=== PATIENT | male | born 1930 | race Caucasian/White ===

== ENCOUNTER 2017-11-22 11:19 | Inpatient (IN) | payer OTHER ==
[~2017-11-22] VITALS: Ht 172.7 cm; Wt 73.9 kg
[2017-11-22 13:19] LABS: Basophils # (auto) 0 uL; Eosinophils # (auto) 0.1 uL; Hemoglobin 11.3 g/dL (13.5-17.5); White Blood Cell 7.1 10^3/uL (4.4-10.8)
[2017-11-22 13:20] LABS: Basophils % (auto) 0.4 % (0.0-2.0); Eosinophils % (auto) 1.8 % (0.0-7.0); Lymphocytes # (auto) 1.7 uL; Lymphocytes % (auto) 24.3 % (10.0-50.0); Mean Corpuscular Hemoglobin 35.3 pg (28.0-32.0); Mean Corpuscular Hgb Conc. 34.2 g/dL (32.0-36.0); Mean Corpuscular Volume 103.1 fL (80.0-100.0); Monocytes # (auto) 0.4 uL; Monocytes % (auto) 6.3 % (0.0-12.0); Neutrophils # (auto) 4.8 uL; Neutrophils % (auto) 67.2 % (37.0-80.0); Nucleated Red Blood Cells % 0.1 %; Platelet Count (auto) 151 10^3/uL (140-450); Red Cell Distribution Width 13.1 % (11.8-14.3)
[2017-11-22 13:31] LABS: Potassium 4.1 mmol/L (3.5-5.1)
[2017-11-22 13:35] LABS: Bilirubin, Total 0.2 mg/dL (0.2-1.0); Calcium 8.5 mg/dL (8.5-10.1); Total Protein 6.8 g/dL (6.4-8.2)
[2017-11-22] MEDS ORDERED: SODIUM CHLORIDE 0.9% 1,000 ML IV ONE (16:28)
[2017-11-22 16:56] LABS: Magnesium 2.6 mg/dL (1.6-2.6)
[2017-11-22] MEDS ORDERED: MEMA1TAB2 PO (20:25)
[2017-11-22] MEDS ORDERED: ASPI-231 PO (20:25)
[2017-11-22] MEDS ORDERED: DOCU250C3 PO (20:25)
[2017-11-22] MEDS ORDERED: MIRT15TA3 PO (20:26)
[2017-11-22] MEDS ORDERED: SIMV-13 PO (20:26)
[2017-11-22] MEDS ORDERED: NITR0.4S29 SL (20:26)
[2017-11-22] MEDS ORDERED: LISI-646 PO (20:26)
[2017-11-22] MEDS ORDERED: TERA10CA36 PO (20:26)
[2017-11-22] MEDS ORDERED: DICL1GEL26 TD (20:26)
[2017-11-22] MEDS ORDERED: FINA5TAB4 PO (20:26)
[2017-11-22 21:22] LABS: Urine Bacteria NONE SEEN /hpf (None Seen); Urine Blood Negative /uL (Negative); Urine Mucus FEW (None Seen); Urine Specific Gravity 1.015 (1.001-1.035); Urine WBC <1 /hpf (0 - 3)
[2017-11-22 21:28] LABS: Alcohol, Urine < 3.0 mg/dL (0-5); Amphetamine Screen, Urine NEGATIVE (NEGATIVE); Barbiturate Scree,Urine NEGATIVE (NEGATIVE); Benzodiazephine Screen, Urine NEGATIVE (NEGATIVE); Cannabinoid Screen, Urine POSITIVE (NEGATIVE); Cocaine Screen, Urine NEGATIVE (NEGATIVE); Opiate Scree,Urine NEGATIVE (NEGATIVE); Phencyclidine Screen, Urine NEGATIVE (NEGATIVE)
[2017-11-22] MEDS ORDERED: ACETAMINOPHEN 500 MG TAB PO PRN (22:15)
[2017-11-22] MEDS ORDERED: ONDANSETRON HCL 4 MG/2 ML VIAL IV PRN (22:15)
[2017-11-22 23:32] VITALS: BP 126/68
[2017-11-23 05:05] VITALS: BP 126/67
[2017-11-23 06:13] LABS: Basophils # (auto) 0 uL; Basophils % (auto) 0.5 % (0.0-2.0); Eosinophils # (auto) 0.2 uL; Hemoglobin 11.1 g/dL (13.5-17.5); Mean Corpuscular Volume 103.5 fL (80.0-100.0); Monocytes # (auto) 0.4 uL; Neutrophils # (auto) 2.5 uL; Nucleated Red Blood Cells % 0.1 %
[2017-11-23 06:16] LABS: Eosinophils % (auto) 4.5 % (0.0-7.0); Lymphocytes % (auto) 38.9 % (10.0-50.0); Mean Corpuscular Hgb Conc. 34.8 g/dL (32.0-36.0); Monocytes % (auto) 8.2 % (0.0-12.0); Neutrophils % (auto) 47.9 % (37.0-80.0); Platelet Count (auto) 142 10^3/uL (140-450); Red Blood Cells 3.09 10^6/uL (4.5-5.90); Red Cell Distribution Width 12.8 % (11.8-14.3); White Blood Cell 5.1 10^3/uL (4.4-10.8)
[2017-11-23 06:45] LABS: BUN/Creatinine Ratio 21.7; Calcium 8.3 mg/dL (8.5-10.1); Potassium 4.5 mmol/L (3.5-5.1)
[2017-11-23 09:00] VITALS: BP 109/68
[2017-11-23] MEDS: MEMANTINE HCL 5 MG TAB PO SCH (10:06)
[2017-11-23] MEDS: FINASTERIDE 5 MG TAB PO SCH (10:06)
[2017-11-23] MEDS: LISINOPRIL 20 MG TAB PO SCH (10:07)
[2017-11-23] MEDS: ASPirin-EC 81 mg tab PO SCH (10:07)
[2017-11-23 13:00] VITALS: BP 122/64
[2017-11-23 17:00] VITALS: BP 142/82
[2017-11-23] MEDS ORDERED: TERAZOSIN HCL 5 MG CAP PO SCH (22:00)
[2017-11-23] MEDS ORDERED: MIRTAZAPINE 30 MG TAB PO SCH (22:00)
[2017-11-24] MEDS ORDERED: diphenhdrAMINE HCL 50 MG/1 ML VL IV ONE (06:30)
[2017-11-24 08:36] VITALS: BP 113/58
[2017-11-24] MEDS: MEMANTINE HCL 5 MG TAB PO SCH (10:06)
[2017-11-24] MEDS: LISINOPRIL 20 MG TAB PO SCH (10:06)
[2017-11-24] MEDS: ASPirin-EC 81 mg tab PO SCH (10:06)
[2017-11-24] MEDS: FINASTERIDE 5 MG TAB PO SCH (10:06)
[2017-11-24] MEDS: HYDROcodone-ACET 5/325MG TAB PO PRN ×2 (12:32→19:39)
[2017-11-24 12:37] VITALS: BP 141/73
[2017-11-24 17:00] VITALS: BP 126/72
[2017-11-24] MEDS ORDERED: MIRTAZAPINE 30 MG TAB PO SCH (20:00)
[2017-11-24] MEDS ORDERED: TERAZOSIN HCL 5 MG CAP PO SCH (20:00)
[2017-11-24 22:00] VITALS: BP 120/72
[2017-11-25 05:00] VITALS: BP 119/65
[2017-11-25 08:00] VITALS: BP 90/39
[2017-11-25] MEDS: LISINOPRIL 20 MG TAB PO SCH (10:00)
[2017-11-25] MEDS: MEMANTINE HCL 5 MG TAB PO SCH (10:07)
[2017-11-25] MEDS: FINASTERIDE 5 MG TAB PO SCH (10:08)
[2017-11-25] MEDS: ASPirin-EC 81 mg tab PO SCH (10:08)
[2017-11-25] MEDS: HYDROcodone-ACET 5/325MG TAB PO PRN (10:08)
[2017-11-25 12:00] VITALS: BP 80/44
[2017-11-25 16:00] VITALS: BP 77/32
[2017-11-25 18:25] VITALS: BP 90/39
== END 2017-11-25 19:50 | disposition home or self-care (01) | DRG 308 ==
LOC: ER 11:19 → TELE 11:20 → TELE-WESTW 23:01
PROVIDERS: ADMIT Nurse Practitioner Family; ATTEND Family Medicine
PROC: 4B02XSZ Measurement of Cardiac Pacemaker, External Approach (ICD-10-PCS; principal; 2017-11-24)
DX: T82.110A Breakdown (mechanical) of cardiac electrode, initial encounter (principal); G93.40 Encephalopathy, unspecified; I10 Essential (primary) hypertension; D64.9 Anemia, unspecified; I49.5 Sick sinus syndrome; F03.90 Unspecified dementia, unspecified severity, without behavioral disturbance, psychotic disturbance, mood disturbance, and anxiety; E78.00 Pure hypercholesterolemia, unspecified; E78.5 Hyperlipidemia, unspecified; F17.210 Nicotine dependence, cigarettes, uncomplicated; I95.9 Hypotension, unspecified; N40.0 Benign prostatic hyperplasia without lower urinary tract symptoms; F32.9 Major depressive disorder, single episode, unspecified; S40.012A Contusion of left shoulder, initial encounter; Y71.2 Prosthetic and other implants, materials and accessory cardiovascular devices associated with adverse incidents; I25.10 Atherosclerotic heart disease of native coronary artery without angina pectoris; M75.102 Unspecified rotator cuff tear or rupture of left shoulder, not specified as traumatic; M19.011 Primary osteoarthritis, right shoulder; R63.0 Anorexia; W18.39XA Other fall on same level, initial encounter; Y93.89 Activity, other specified; Y92.098 Other place in other non-institutional residence as the place of occurrence of the external cause; Z79.899 Other long term (current) drug therapy; Z95.0 Presence of cardiac pacemaker; Y99.8 Other external cause status; Z98.61 Coronary angioplasty status; Z68.24 Body mass index [BMI] 24.0-24.9, adult
CPT/HCPCS: 36415; 70450; 71045; 73030; 80048; 80053; 80307; 81001; 83735; 84443; 84484; 85025; 93005; 94761; 96360

== ENCOUNTER 2017-12-22 08:14 | Inpatient (IN) | payer BC, OTHER ==
[~2017-12-22] VITALS: Ht 180.3 cm; Wt 71.4 kg
[~2017-12-22 08:14] MED LIST: ASPI-231 PO; DICL1GEL26 TD; DOCU250C3 PO; FINA5TAB4 PO; LISI-646 PO; MEMA1TAB2 PO; MIRT15TA3 PO; NITR0.4S29 SL; SIMV-13 PO; TERA10CA36 PO
[2017-12-22] MEDS ORDERED: SODIUM CHLORIDE 0.9% 1,000 ML IV ONE (08:32)
[2017-12-22] MEDS ORDERED: HALOPERIDOL LACTATE 5 MG/ML INJ VIAL IM ONE (08:45)
[2017-12-22] MEDS ORDERED: LORazepam 2MG/ML-1ML VIAL IV ONE (08:45)
[2017-12-22] MEDS ORDERED: LORazepam 2MG/ML-1ML VIAL IM ONE (09:00)
[2017-12-22 09:54] LABS: Basophils # (auto) 0 uL; Eosinophils # (auto) 0 uL; Hemoglobin 12.2 g/dL (13.5-17.5); Lymphocytes # (auto) 1.4 uL; Mean Corpuscular Hemoglobin 35.1 pg (28.0-32.0); Mean Corpuscular Hgb Conc. 34.2 g/dL (32.0-36.0); Mean Corpuscular Volume 102.6 fL (80.0-100.0); Monocytes # (auto) 0.4 uL
[2017-12-22 09:56] LABS: Basophils % (auto) 0.6 % (0.0-2.0); Eosinophils % (auto) 0.7 % (0.0-7.0); Hematocrit 35.6 % (41.0-53.0); Lymphocytes % (auto) 23.9 % (10.0-50.0); Monocytes % (auto) 7.4 % (0.0-12.0); Neutrophils % (auto) 67.4 % (37.0-80.0); Nucleated Red Blood Cells % 0.1 %; Platelet Count (auto) 155 10^3/uL (140-450); Red Blood Cells 3.47 10^6/uL (4.5-5.90); Red Cell Distribution Width 13.6 % (11.8-14.3)
[2017-12-22 10:17] LABS: Alanine Aminotransferase 17 U/L (16-61); Albumin 4.4 g/dL (3.4-5.0); Alkaline Phosphatase 65 U/L (45-117); Anion Gap 6 (5-15); Aspartate Aminotransferase 16 U/L (15-37); BUN/Creatinine Ratio 16.4; Bilirubin, Total 0.4 mg/dL (0.2-1.0); Blood Alcohol < 3.0 mg/dL (0-5); Blood Urea Nitrogen 18 mg/dL (7-18); Calcium 8.5 mg/dL (8.5-10.1); Carbon Dioxide 28 mmol/L (21-32); Chloride 109 mmol/L (98-107); GFR African American 82 mL/min; GFR Non-African American 67 mL/min; Glucose 97 mg/dL (74-106); Potassium 3.8 mmol/L (3.5-5.1); Sodium 143 mmol/L (136-145); Total Protein 7.3 g/dL (6.4-8.2)
[2017-12-22 10:51] LABS: Urine Amorphous Crystal FEW /hpf (None Seen); Urine Bacteria FEW /hpf (None Seen); Urine Blood Negative /uL (Negative); Urine Specific Gravity 1.011 (1.001-1.035); Urine WBC <1 /hpf (0 - 3)
[2017-12-22 10:53] LABS: Partial Thromboplastin Time 24.5 sec (23.78-33.04); Prothrombin Time 10.7 sec (9.27-12.13)
[2017-12-22] MEDS: SODIUM CHLORIDE 0.9% 1,000 ML IV SCH ×2 (11:02→22:04)
[2017-12-22 11:13] LABS: Alcohol, Urine < 3.0 mg/dL (0-5); Amphetamine Screen, Urine NEGATIVE (NEGATIVE); Barbiturate Scree,Urine NEGATIVE (NEGATIVE); Benzodiazephine Screen, Urine NEGATIVE (NEGATIVE); Cannabinoid Screen, Urine POSITIVE (NEGATIVE); Cocaine Screen, Urine NEGATIVE (NEGATIVE); Opiate Scree,Urine NEGATIVE (NEGATIVE); Phencyclidine Screen, Urine NEGATIVE (NEGATIVE)
[2017-12-22] MEDS ORDERED: LACTULOSE 20Gm/30ML SOLN PO PRN (11:15)
[2017-12-22] MEDS ORDERED: TEMAZEPAM 15 MG CAP PO PRN (11:15)
[2017-12-22] MEDS ORDERED: DOCUSATE ORAL LIQUID 100 MG/10 ML UD PO PRN (11:15)
[2017-12-22] MEDS ORDERED: LABETALOL HCL 5 MG/ML ML 20ML VIAL IV PRN (11:15)
[2017-12-22] MEDS ORDERED: LORazepam 0.5 MG TAB PO PRN (11:15)
[2017-12-22] MEDS ORDERED: MORPHINE SULF INJ 2 MG/ML SYRINGE 1ML IV PRN ×2 (11:15)
[2017-12-22] MEDS ORDERED: NITROGLYCERIN 0.4 MG SL TAB SL PRN (11:15)
[2017-12-22] MEDS ORDERED: PROMETHAZINE HCL 25 MG/ML 1ML IV PRN (11:15)
[2017-12-22] MEDS ORDERED: PANTOPRAZOLE 40 MG TAB PO ONE (11:45)
[2017-12-22] MEDS ORDERED: ASPirin-EC 81 mg tab PO ONE (11:45)
[2017-12-22] MEDS ORDERED: LISINOPRIL 20 MG TAB PO ONE (12:00)
[2017-12-22] MEDS ORDERED: MEMANTINE HCL 5 MG TAB PO ONE (12:15)
[2017-12-22 15:55] LABS: Folate (Folic Acid) 18.73 ng/mL (5.38-24)
[2017-12-22] MEDS: MIRTAZAPINE 30 MG TAB PO SCH (18:00)
[2017-12-22] MEDS ORDERED: HALOPERIDOL LACTATE 5 MG/ML INJ VIAL ONE (20:38)
[2017-12-22] MEDS: HALOPERIDOL LACTATE 5 MG/ML INJ VIAL IM PRN (20:52)
[2017-12-22] MEDS: ATORVASTATIN 20 MG TAB PO SCH (22:00)
[2017-12-22] MEDS: TERAZOSIN HCL 5 MG CAP PO SCH (22:00)
[2017-12-22] MEDS: FINASTERIDE 5 MG TAB PO SCH (22:00)
[2017-12-22 22:10] VITALS: BP 141/76
[2017-12-22 23:00] VITALS: BP 141/76
[2017-12-23] MEDS ORDERED: DIPH1TAB30 PO (06:18)
[2017-12-23] MEDS ORDERED: BACL10TA PO (06:18)
[2017-12-23] MEDS ORDERED: NAPR375T27 PO (06:20)
[2017-12-23] MEDS ORDERED: NAPR-476 PO (06:20)
[2017-12-23] MEDS ORDERED: MELA3TAB27 PO (06:20)
[2017-12-23 08:00] VITALS: BP 124/79
[2017-12-23 09:00] VITALS: BP 123/69
[2017-12-23] MEDS: PANTOPRAZOLE 40 MG TAB PO SCH (10:07)
[2017-12-23] MEDS: MEMANTINE HCL 5 MG TAB PO SCH (10:07)
[2017-12-23] MEDS: LISINOPRIL 20 MG TAB PO SCH (10:08)
[2017-12-23] MEDS: ASPirin-EC 81 mg tab PO SCH (10:08)
[2017-12-23] MEDS: HYDROcodone-ACET 5/325MG TAB PO PRN ×2 (10:17→18:03)
[2017-12-23] MEDS: SODIUM CHLORIDE 0.9% 1,000 ML IV SCH (12:08)
[2017-12-23 13:00] VITALS: BP 121/54
[2017-12-23 17:20] VITALS: BP 126/67
[2017-12-23] MEDS: MIRTAZAPINE 30 MG TAB PO SCH (17:30)
[2017-12-23 20:00] VITALS: BP 123/69
[2017-12-23 21:23] VITALS: BP 95/47
[2017-12-23] MEDS: TERAZOSIN HCL 5 MG CAP PO SCH (22:00)
[2017-12-23] MEDS: ATORVASTATIN 20 MG TAB PO SCH (23:24)
[2017-12-23] MEDS: FINASTERIDE 5 MG TAB PO SCH (23:24)
[2017-12-24] MEDS: SODIUM CHLORIDE 0.9% 1,000 ML IV SCH ×3 (00:32→21:43)
[2017-12-24 00:38] VITALS: BP 121/50
[2017-12-24 05:00] VITALS: BP 147/75
[2017-12-24] MEDS: LISINOPRIL 20 MG TAB PO SCH (10:00)
[2017-12-24] MEDS: PANTOPRAZOLE 40 MG TAB PO SCH (11:01)
[2017-12-24] MEDS: ASPirin-EC 81 mg tab PO SCH (11:01)
[2017-12-24] MEDS: MEMANTINE HCL 5 MG TAB PO SCH (11:02)
[2017-12-24 12:14] LABS: Magnesium 2.1 mg/dL (1.6-2.6); Potassium 3.8 mmol/L (3.5-5.1)
[2017-12-24] MEDS: MIRTAZAPINE 30 MG TAB PO SCH (18:00)
[2017-12-24] MEDS: DONEPEZIL HYDROCHLORIDE 5 MG TAB PO SCH (21:42)
[2017-12-24] MEDS: FINASTERIDE 5 MG TAB PO SCH (21:42)
[2017-12-24] MEDS: ATORVASTATIN 20 MG TAB PO SCH (21:42)
[2017-12-24] MEDS: TERAZOSIN HCL 5 MG CAP PO SCH (21:42)
[2017-12-25] MEDS: HALOPERIDOL LACTATE 5 MG/ML INJ VIAL IM PRN (03:08)
[2017-12-25 05:00] VITALS: BP 131/66
[2017-12-25 09:00] VITALS: BP 115/61
[2017-12-25] MEDS: LISINOPRIL 20 MG TAB PO SCH (10:00)
[2017-12-25] MEDS: PANTOPRAZOLE 40 MG TAB PO SCH (10:28)
[2017-12-25] MEDS: ASPirin-EC 81 mg tab PO SCH (10:29)
[2017-12-25] MEDS: MEMANTINE HCL 5 MG TAB PO SCH (10:30)
[2017-12-25 13:00] VITALS: BP 112/50
[2017-12-25] MEDS: SODIUM CHLORIDE 0.9% 1,000 ML IV SCH (14:24)
[2017-12-25 17:00] VITALS: BP 108/56
[2017-12-25] MEDS: Ensure Enlive Strawberry 8oz Bottle PO SCH (18:14)
[2017-12-25] MEDS: MIRTAZAPINE 30 MG TAB PO SCH (18:15)
[2017-12-25] MEDS ORDERED: ALBUMIN 5% 250 ML IV ONE (21:15)
[2017-12-25 22:00] VITALS: BP 125/59
[2017-12-25] MEDS: TERAZOSIN HCL 5 MG CAP PO SCH (22:00)
[2017-12-25] MEDS: FINASTERIDE 5 MG TAB PO SCH (22:23)
[2017-12-25] MEDS: ATORVASTATIN 20 MG TAB PO SCH (22:23)
[2017-12-25] MEDS: DONEPEZIL HYDROCHLORIDE 5 MG TAB PO SCH (22:23)
[2017-12-26] MEDS: SODIUM CHLORIDE 0.9% 1,000 ML IV SCH ×2 (02:52→15:02)
[2017-12-26 05:00] VITALS: BP 112/59
[2017-12-26] MEDS: Ensure Enlive Strawberry 8oz Bottle PO SCH ×3 (08:00→18:00)
[2017-12-26 09:00] VITALS: BP 130/60
[2017-12-26] MEDS: PANTOPRAZOLE 40 MG TAB PO SCH (10:00)
[2017-12-26] MEDS: ASPirin-EC 81 mg tab PO SCH (10:00)
[2017-12-26] MEDS: LISINOPRIL 20 MG TAB PO SCH (10:00)
[2017-12-26] MEDS: MEMANTINE HCL 5 MG TAB PO SCH (10:00)
[2017-12-26 13:00] VITALS: BP 124/64
[2017-12-26 17:00] VITALS: BP 151/69
[2017-12-26] MEDS: MIRTAZAPINE 30 MG TAB PO SCH (18:00)
[2017-12-26] MEDS: FINASTERIDE 5 MG TAB PO SCH (21:58)
[2017-12-26] MEDS: DONEPEZIL HYDROCHLORIDE 5 MG TAB PO SCH (21:58)
[2017-12-26] MEDS: ATORVASTATIN 20 MG TAB PO SCH (21:58)
[2017-12-26] MEDS: TERAZOSIN HCL 5 MG CAP PO SCH (21:58)
[2017-12-26 22:00] VITALS: BP 144/76
[2017-12-27] MEDS: SODIUM CHLORIDE 0.9% 1,000 ML IV SCH ×2 (03:34→12:42)
[2017-12-27 05:00] VITALS: BP 131/67
[2017-12-27] MEDS: Ensure Enlive Strawberry 8oz Bottle PO SCH ×3 (08:00→17:45)
[2017-12-27] MEDS: ASPirin-EC 81 mg tab PO SCH (10:00)
[2017-12-27] MEDS: PANTOPRAZOLE 40 MG TAB PO SCH (10:00)
[2017-12-27] MEDS: MEMANTINE HCL 5 MG TAB PO SCH (10:00)
[2017-12-27] MEDS: LISINOPRIL 20 MG TAB PO SCH (10:00)
[2017-12-27] MEDS: MIRTAZAPINE 30 MG TAB PO SCH (17:43)
[2017-12-27 21:17] VITALS: BP 151/74
[2017-12-27] MEDS: DONEPEZIL HYDROCHLORIDE 5 MG TAB PO SCH (21:35)
[2017-12-27] MEDS: TERAZOSIN HCL 5 MG CAP PO SCH (21:36)
[2017-12-27] MEDS: ATORVASTATIN 20 MG TAB PO SCH (21:36)
[2017-12-27] MEDS: FINASTERIDE 5 MG TAB PO SCH (21:36)
[2017-12-27] MEDS ORDERED: IPRATROPIUM BROM 0.5 MG/2.5ML INH SOL ONE (23:25)
[2017-12-27] MEDS ORDERED: ALBUTEROL SULF 2.5 MG/0.5ML(0.5%) NEB SOLN ONE (23:25)
[2017-12-27] MEDS ORDERED: IPRATROPIUM BROM 0.5 MG/2.5ML INH SOL NEB ONE (23:30)
[2017-12-27] MEDS ORDERED: ALBUTEROL SULF 2.5 MG/0.5ML(0.5%) NEB SOLN NEB ONE (23:30)
[2017-12-28 04:58] VITALS: BP 139/74
[2017-12-28] MEDS: SODIUM CHLORIDE 0.9% 1,000 ML IV SCH ×2 (05:10→21:50)
[2017-12-28 05:59] LABS: Basophils # (auto) 0 uL; Basophils % (auto) 0.3 % (0.0-2.0); Eosinophils # (auto) 0 uL; Eosinophils % (auto) 0.5 % (0.0-7.0); Hematocrit 33.6 % (41.0-53.0); Hemoglobin 11.7 g/dL (13.5-17.5); Lymphocytes % (auto) 17.4 % (10.0-50.0); Mean Corpuscular Hemoglobin 35.9 pg (28.0-32.0); Mean Corpuscular Volume 102.9 fL (80.0-100.0); Monocytes # (auto) 0.8 uL; Monocytes % (auto) 13.3 % (0.0-12.0); Neutrophils # (auto) 3.9 uL; Neutrophils % (auto) 68.5 % (37.0-80.0); Platelet Count (auto) 163 10^3/uL (140-450); Red Blood Cells 3.27 10^6/uL (4.5-5.90); Red Cell Distribution Width 13.3 % (11.8-14.3); White Blood Cell 5.7 10^3/uL (4.4-10.8)
[2017-12-28 06:19] LABS: Calcium 8.3 mg/dL (8.5-10.1); Magnesium 2.4 mg/dL (1.6-2.6); Potassium 3.7 mmol/L (3.5-5.1)
[2017-12-28] MEDS: Ensure Enlive Strawberry 8oz Bottle PO SCH ×3 (08:00→17:57)
[2017-12-28 08:34] VITALS: BP 124/60
[2017-12-28] MEDS: LISINOPRIL 20 MG TAB PO SCH (10:00)
[2017-12-28] MEDS: PANTOPRAZOLE 40 MG TAB PO SCH (10:00)
[2017-12-28] MEDS: MEMANTINE HCL 5 MG TAB PO SCH (10:00)
[2017-12-28] MEDS: ASPirin-EC 81 mg tab PO SCH (10:00)
[2017-12-28] MEDS: HALOPERIDOL LACTATE 5 MG/ML INJ VIAL IM PRN (14:18)
[2017-12-28 17:00] VITALS: BP 143/63
[2017-12-28] MEDS: MIRTAZAPINE 30 MG TAB PO SCH (17:57)
[2017-12-28 21:01] VITALS: BP 107/48
[2017-12-28] MEDS: ATORVASTATIN 20 MG TAB PO SCH (22:00)
[2017-12-28] MEDS: FINASTERIDE 5 MG TAB PO SCH (22:00)
[2017-12-28] MEDS: TERAZOSIN HCL 5 MG CAP PO SCH (22:00)
[2017-12-28] MEDS: DONEPEZIL HYDROCHLORIDE 5 MG TAB PO SCH (22:00)
[2017-12-29 05:05] VITALS: BP 139/60
[2017-12-29] MEDS: Ensure Enlive Strawberry 8oz Bottle PO SCH ×3 (08:00→18:00)
[2017-12-29] MEDS: ASPirin-EC 81 mg tab PO SCH (09:36)
[2017-12-29] MEDS: PANTOPRAZOLE 40 MG TAB PO SCH (09:37)
[2017-12-29] MEDS: MEMANTINE HCL 5 MG TAB PO SCH (09:37)
[2017-12-29] MEDS: LISINOPRIL 20 MG TAB PO SCH (09:37)
[2017-12-29 13:00] VITALS: BP 147/75
[2017-12-29] MEDS ORDERED: LORazepam 2MG/ML-1ML VIAL IV ONE (14:30)
[2017-12-29] MEDS ORDERED: LORazepam 0.5 MG TAB PO PRN (14:45)
[2017-12-29 16:55] VITALS: BP 157/86
[2017-12-29] MEDS: SODIUM CHLORIDE 0.9% 1,000 ML IV SCH (17:22)
[2017-12-29] MEDS: MIRTAZAPINE 30 MG TAB PO SCH (18:00)
[2017-12-29] MEDS: DONEPEZIL HYDROCHLORIDE 5 MG TAB PO SCH (21:35)
[2017-12-29] MEDS: ATORVASTATIN 20 MG TAB PO SCH (21:36)
[2017-12-29] MEDS: FINASTERIDE 5 MG TAB PO SCH (21:36)
[2017-12-29] MEDS: TERAZOSIN HCL 5 MG CAP PO SCH (21:37)
[2017-12-29 22:00] VITALS: BP 144/88
[2017-12-30 05:00] VITALS: BP 149/72
[2017-12-30] MEDS: Ensure Enlive Strawberry 8oz Bottle PO SCH ×3 (08:00→17:36)
[2017-12-30 09:11] VITALS: BP 145/65
[2017-12-30] MEDS: MEMANTINE HCL 5 MG TAB PO SCH (09:53)
[2017-12-30] MEDS: LISINOPRIL 20 MG TAB PO SCH (09:53)
[2017-12-30] MEDS: SODIUM CHLORIDE 0.9% 1,000 ML IV SCH (09:53)
[2017-12-30] MEDS: PANTOPRAZOLE 40 MG TAB PO SCH (09:53)
[2017-12-30] MEDS: ASPirin-EC 81 mg tab PO SCH (09:53)
[2017-12-30] MEDS ORDERED: ceFAZolin 1GM 2 GM in D5W 5% 100 ML IV ONE (13:30)
[2017-12-30 14:22] VITALS: BP 122/63
[2017-12-30 17:43] VITALS: BP 140/71
[2017-12-30] MEDS: MIRTAZAPINE 30 MG TAB PO SCH (18:07)
[2017-12-30] MEDS: FINASTERIDE 5 MG TAB PO SCH (21:43)
[2017-12-30] MEDS: DONEPEZIL HYDROCHLORIDE 5 MG TAB PO SCH (21:43)
[2017-12-30] MEDS: ATORVASTATIN 20 MG TAB PO SCH (21:43)
[2017-12-30] MEDS: TERAZOSIN HCL 5 MG CAP PO SCH (21:43)
[2017-12-30 22:00] VITALS: BP 117/59
[2017-12-31] MEDS: SODIUM CHLORIDE 0.9% 1,000 ML IV SCH ×2 (02:01→16:30)
[2017-12-31 05:00] VITALS: BP 112/62
[2017-12-31 06:33] LABS: INR 1.06 (0.9-1.15); Partial Thromboplastin Time 24.5 sec (23.78-33.04); Prothrombin Time 11.3 sec (9.27-12.13)
[2017-12-31] MEDS ORDERED: LIDOCAINE VISCOUS 2% 15ML UD ONE (08:32)
[2017-12-31] MEDS ORDERED: SODIUM CHLORIDE LOCK 10 ML ONE (08:32)
[2017-12-31] MEDS ORDERED: diphenhdrAMINE HCL 50 MG/1 ML VL ONE (08:33)
[2017-12-31 08:48] VITALS: BP 135/73
[2017-12-31 08:56] LABS: Albumin 3.1 g/dL (3.4-5.0); BUN/Creatinine Ratio 24.6; Bilirubin, Total 0.4 mg/dL (0.2-1.0); Calcium 8.5 mg/dL (8.5-10.1); Potassium 3.2 mmol/L (3.5-5.1); Total Protein 6.2 g/dL (6.4-8.2)
[2017-12-31] MEDS: PANTOPRAZOLE 40 MG TAB PO SCH ×2 (10:00→21:47)
[2017-12-31] MEDS: MEMANTINE HCL 5 MG TAB PO SCH (10:00)
[2017-12-31] MEDS: LISINOPRIL 20 MG TAB PO SCH (10:00)
[2017-12-31] MEDS ORDERED: POTASSIUM CHL 20MEQ/100ML 100 ML IV ONE ×2 (10:15→10:45)
[2017-12-31] MEDS ORDERED: ceFAZolin 1GM/50ML 50 ML IV ONE (13:12)
[2017-12-31] MEDS: MIDAZOLAM HCL 5 MG/ML-1ML VIAL ONE ×3 (13:24→13:35)
[2017-12-31] MEDS: fentaNYL CITRATE 100 MCG/2 ML VL ONE ×3 (13:24→13:35)
[2017-12-31 17:23] VITALS: BP 151/68
[2017-12-31] MEDS: MIRTAZAPINE 30 MG TAB PO SCH (18:00)
[2017-12-31] MEDS: MORPHINE SULF INJ 2 MG/ML SYRINGE 1ML IV PRN (20:33)
[2017-12-31] MEDS: TERAZOSIN HCL 5 MG CAP PO SCH (21:46)
[2017-12-31] MEDS: ATORVASTATIN 20 MG TAB PO SCH (21:46)
[2017-12-31] MEDS: DONEPEZIL HYDROCHLORIDE 5 MG TAB PO SCH (21:46)
[2017-12-31] MEDS: FINASTERIDE 5 MG TAB PO SCH (21:47)
[2017-12-31 21:54] VITALS: BP 140/75
[2018-01-01 04:48] VITALS: BP 140/64
[2018-01-01 08:42] VITALS: BP 147/70
[2018-01-01] MEDS: PANTOPRAZOLE 40 MG TAB PO SCH ×2 (10:30→22:21)
[2018-01-01] MEDS: SODIUM CHLORIDE 0.9% 1,000 ML IV SCH (10:30)
[2018-01-01] MEDS: MEMANTINE HCL 5 MG TAB PO SCH (10:30)
[2018-01-01] MEDS: LISINOPRIL 20 MG TAB PO SCH (10:30)
[2018-01-01] MEDS: LEVOFLOXACIN 500MG 100 ML IV SCH (10:30)
[2018-01-01] MEDS: ACETAMINOPHEN 500 MG TAB PO PRN ×2 (10:40→19:02)
[2018-01-01 13:00] VITALS: BP 111/59
[2018-01-01 17:00] VITALS: BP 116/60
[2018-01-01] MEDS: Jevity 1.2 Cal/Fiber 1 Liter GT SCH ×2 (18:00→20:09)
[2018-01-01] MEDS ORDERED: Glucerna 1.2 Cal 1Liter BOTTLE GT SCH (18:45)
[2018-01-01] MEDS: MIRTAZAPINE 30 MG TAB PO SCH (18:58)
[2018-01-01 21:30] VITALS: BP 143/74
[2018-01-01] MEDS: DONEPEZIL HYDROCHLORIDE 5 MG TAB PO SCH (22:21)
[2018-01-01] MEDS: ATORVASTATIN 20 MG TAB PO SCH (22:21)
[2018-01-01] MEDS: FINASTERIDE 5 MG TAB PO SCH (22:22)
[2018-01-01] MEDS: TERAZOSIN HCL 5 MG CAP PO SCH (22:22)
[2018-01-02] MEDS: SODIUM CHLORIDE 0.9% 1,000 ML IV SCH ×2 (02:08→18:07)
[2018-01-02] MEDS: Jevity 1.2 Cal/Fiber 1 Liter GT SCH ×6 (02:09→21:00)
[2018-01-02 05:00] VITALS: BP 132/57
[2018-01-02 08:00] VITALS: BP 107/47
[2018-01-02] MEDS: LISINOPRIL 20 MG TAB PO SCH (09:20)
[2018-01-02] MEDS: PANTOPRAZOLE 40 MG TAB PO SCH ×2 (09:20→23:23)
[2018-01-02] MEDS: MEMANTINE HCL 5 MG TAB PO SCH (09:20)
[2018-01-02] MEDS: LEVOFLOXACIN 500MG 100 ML IV SCH (09:20)
[2018-01-02 12:00] VITALS: BP 123/65
[2018-01-02 16:00] VITALS: BP 128/54
[2018-01-02] MEDS: MIRTAZAPINE 30 MG TAB PO SCH (18:07)
[2018-01-02 21:43] VITALS: BP 127/54
[2018-01-02] MEDS: ATORVASTATIN 20 MG TAB PO SCH (22:00)
[2018-01-02] MEDS: TERAZOSIN HCL 5 MG CAP PO SCH (23:22)
[2018-01-02] MEDS: DONEPEZIL HYDROCHLORIDE 5 MG TAB PO SCH (23:22)
[2018-01-02] MEDS: FINASTERIDE 5 MG TAB PO SCH (23:23)
[2018-01-03 05:00] VITALS: BP 116/51
[2018-01-03] MEDS: Jevity 1.2 Cal/Fiber 1 Liter GT SCH ×5 (05:58→18:24)
[2018-01-03] MEDS: MORPHINE SULF INJ 2 MG/ML SYRINGE 1ML IV PRN (08:15)
[2018-01-03 09:00] VITALS: BP 113/54
[2018-01-03] MEDS: LEVOFLOXACIN 500MG 100 ML IV SCH (10:12)
[2018-01-03] MEDS: PANTOPRAZOLE 40 MG TAB PO SCH (10:13)
[2018-01-03] MEDS: MEMANTINE HCL 5 MG TAB PO SCH (10:14)
[2018-01-03] MEDS: LISINOPRIL 20 MG TAB PO SCH (10:14)
[2018-01-03] MEDS: SODIUM CHLORIDE 0.9% 1,000 ML IV SCH (11:38)
[2018-01-03 13:00] VITALS: BP 121/63
[2018-01-03 17:00] VITALS: BP 117/59
[2018-01-03] MEDS: MIRTAZAPINE 30 MG TAB PO SCH (18:24)
[2018-01-03 21:35] VITALS: BP 142/71
== END 2018-01-03 21:45 | disposition hospice, home (50) | DRG 64 ==
LOC: ER 08:14 → EDBD 08:14 → TELE 08:15 → TELE-WESTW 22:10 → TELE-EAST 12-24 02:31 → EAST 01-03 05:39 → WEST WING 01-03 07:05
PROVIDERS: ADMIT Internal Medicine; ATTEND Internal Medicine Pulmonary Disease
PROC: 0DH63UZ Insertion of Feeding Device into Stomach, Percutaneous Approach (ICD-10-PCS; 2017-12-31)
PROC: 0DB68ZX Excision of Stomach, Via Natural or Artificial Opening Endoscopic, Diagnostic (ICD-10-PCS; principal; 2017-12-31 13:16)
DX: I63.9 Cerebral infarction, unspecified (principal); G93.41 Metabolic encephalopathy; J15.6 Pneumonia due to other Gram-negative bacteria; E44.1 Mild protein-calorie malnutrition; F29 Unspecified psychosis not due to a substance or known physiological condition; F02.80 Dementia in other diseases classified elsewhere, unspecified severity, without behavioral disturbance, psychotic disturbance, mood disturbance, and anxiety; K29.80 Duodenitis without bleeding; K29.70 Gastritis, unspecified, without bleeding; G30.9 Alzheimer's disease, unspecified; M75.100 Unspecified rotator cuff tear or rupture of unspecified shoulder, not specified as traumatic; I10 Essential (primary) hypertension; F12.90 Cannabis use, unspecified, uncomplicated; D53.9 Nutritional anemia, unspecified; E78.5 Hyperlipidemia, unspecified; E87.6 Hypokalemia; Z95.0 Presence of cardiac pacemaker; Z79.899 Other long term (current) drug therapy; Z79.82 Long term (current) use of aspirin; Z95.5 Presence of coronary angioplasty implant and graft; Z68.22 Body mass index [BMI] 22.0-22.9, adult
CPT/HCPCS: 36415; 43239; 43246; 70450; 71045; 80048; 80053; 80307; 80320; 81001; 82550; 82607; 82746; 83605; 83735; 84132; 84443; 84484; 85025; 85610; 85652; 85730; 86850; 86900; 86901; 87040; 87070; 87077; 87081; 87086; 87186; 87205; 92610; 93005; 94640; 95819; 96372; J0690; J1956; J2250; J3480; J7060